=== PATIENT | male | born 1980 | race Two or more races ===

== ENCOUNTER 2025-08-26 01:58 | Emergency (ER) | payer OTHER ==
[~2025-08-26] VITALS: Ht 162.6 cm; Wt 90.9 kg
[2025-08-26 02:09] VITALS: TEMP 98.2
[2025-08-26 02:33] VITALS: BP 116/71; PULSE 80; RESP 18; O2SAT 100
[2025-08-26] MEDS: KETOROLAC TROMETHAMINE 30 MG/ML VIAL IM ONE (04:00)
[2025-08-26] MEDS: LIDOCAINE 5% TRANSDERMAL PATCH TD ONE (04:01)
== END 2025-08-26 04:17 ==
LOC: EMS 01:58
DX: G89.29 Other chronic pain (principal); M54.50 Low back pain, unspecified; R20.2 Paresthesia of skin; R20.0 Anesthesia of skin; Z88.5 Allergy status to narcotic agent; Z98.890 Other specified postprocedural states; W01.0XXA Fall on same level from slipping, tripping and stumbling without subsequent striking against object, initial encounter
CPT/HCPCS: 99283; 72100; 96372; J1885